=== PATIENT | male | born 1975 | race Caucasian/White ===

== ENCOUNTER 2016-04-29 02:00 | Inpatient (IN) | payer OTHER ==
[~2016-04-29] VITALS: Ht 182.9 cm; Wt 75.9 kg
[2016-04-29 01:00] VITALS: BP 106/65; PULSE 80; RESP 18; TEMP 97.6; O2SAT 97
[~2016-04-29 02:00] MED LIST: AZIT250T3 PO; CHLO25CA2 PO
[2016-04-29] MEDS ORDERED: MAGNESIUM HYDROXIDE SUSP 30 ML CUP PO PRN (02:45)
[2016-04-29] MEDS ORDERED: ALUMINUM/MAGNESIUM/SIMETH 30 ML CUP PO PRN (02:45)
[2016-04-29] MEDS ORDERED: ACETAMINOPHEN 325 MG TAB PO PRN (02:45)
[2016-04-29 05:50] VITALS: BP 114/69; PULSE 57; RESP 16; TEMP 97.6; O2SAT 98
[2016-04-29] MEDS ORDERED: LORazepam 2 MG/ML VIAL IV PUSH PRN ×4 (06:00)
[2016-04-29] MEDS ORDERED: LORazepam 2 MG TAB PO PRN (06:00)
[2016-04-29] MEDS ORDERED: FLUMAZENIL 0.5 MG/5 ML VIAL IV PUSH PRN (06:00)
[2016-04-29] MEDS ORDERED: LORazepam 1 MG TAB PO PRN (06:00)
--- NOTE | 2016-04-29 13:31 | HHI.HP ---
Provisional Diagnosis Admission Date Apr 29, 2016 at 02:00 [place] I. Alcohol-induced mood disorder, alcohol use disorder, [place] II. Deferred [place] III. Hypertension [place] IV. Lack of family and social support [place] V. 55 Certification of Person's Competence To Provide Express and Informed Consent I have personally examined Jose Alberto Galeas , a person being served at [facility] on, Apr 29, 2016 13:22. Express and informed consent means consent voluntarily given in writing, by a competent person, after sufficient explanation and disclosure of the subject matter involved to enable the person to make a knowing and willful decision without any element of force, fraud, deceit, duress, or other form of constraint or coercion. This person is 18 years of age or older, is not now known to be incompetent to consent to treatment with a guardian advocate, and does not have a health care surrogate or proxy currently making medical treatment decisions. I have found this person to be one of the following: [X] Competent to provide express and informed consent, as defined above, for voluntary admission to this facility and is competent to provide express and informed consent for treatment. He/she has the consistent capacity to make well reasoned, willful, and knowing decisions concerning his or her medical or mental health treatment. The person fully and consistently understands the purpose of the admission for examination/placement and is fully capable of personally exercising all rights [place] Incompetent to provide express and informed consent to voluntary admission, and this is incompetent to provide express and informed consent to treatment. The person must be transferred to involuntary status and a petition for a guardian advocate filed with the Circuit Court. [] Refusing to provide express and informed consent to voluntary admission but is competent to provide express and informed consent for treatment. The person must be discharged or transferred to involuntary status. Form shall be completed within 24 hours of a person's arrival at the receiving facility and filed in the clinical record of each person: 1. Admitted on a voluntary basis 2. Permitted to provide express and informed consent to his/her own treatment 3. Allowed to transfer from involuntary to voluntary status 4. Prior to permitting a person to consent to his or her own treatment after having been previously found incompetent to consent to treatment. History of Present Illness Capacity: Has Capacity HPI The patient is a 40-year-old man, domiciled with a roommate Jarod, employed in constructions, single, with psychiatric history of alcohol use disorder, alcohol related ER visits, no previous psychiatric hospitalizations, 1 previous suicidal attempt by overdosing, multiple incarcerations, medical history hypertension, who was brought to the hospital under [place] act due to suicidal statement to the police. On psychiatric evaluation today patient is calm, cooperative and pleasant, he stated that yesterday he had an argument with his roommate, his roommate called the police and he became very mad and he stated that "you can kill him if he want to", but he says that he was just furious and frustrated and also under the influence of alcohol. At this moment the patient denies depressive symptoms, he denies anxiety, he denies anhedonia, he denies hopelessness, he denies helplessness, he denies suicidal and homicidal ideation. He denies visual and auditory hallucinations. No paranoia , no delusions, no agitation, no aggressive behavior, observed.. Patient is fully oriented 3. Patient is future oriented, he says that he will stay in the [facility] or will go back to [facility], when he has a lot of friends and will look for a new job. Patient requests to speak with oncology social worker to see if he can get some clothes and shoes. He reports daily use of alcohol, anywhere from 4-10 beers, he denies the use of other illicit drugs. He reports occasional withdrawal, denies seizures. He has been in rehabilitation in the past in [facility]. Review of Systems Constitutional: DENIES: Diaphoretic episodes, Fatigue, Fever, Weight gain, Weight loss, Chills, Dizziness, Change in appetite, Night Sweats Endocrine: DENIES: Heat/cold intolerance, Polydipsia, Polyuria, Polyphagia Eyes: DENIES: Blurred vision, Diplopia, Eye inflammation, Eye pain, Vision loss , Photosensitivity, Double Vision Ears, nose, mouth, throat: DENIES: Tinnitus, Hearing loss, Vertigo, Nasal discharge, Oral lesions, Throat pain, Hoarseness, Ear Pain, Running Nose, Epistaxis, Sinus Pain, Toothache, Odynophagia Respiratory: DENIES: Apneas, Cough, Snoring, Wheezing, Hemoptysis, Sputum production, Shortness of breath Cardiovascular: DENIES: Chest pain, Palpitations, Syncope, Dyspnea on Exertion , PND, Lower Extremity Edema, Orthopnea, Claudication Gastrointestinal: DENIES: Abdominal pain, Black stools, Bloody stools, Constipation, Diarrhea, Nausea, Vomiting, Difficulty Swallowing, Anorexia Genitourinary: DENIES: Sexual dysfunction, Urinary frequency, Urinary incontinence, Urgency, Hematuria, Dysuria, Nocturia, Penile Discharge, Testicular Pain, Testicular Swelling Integumentary: DENIES: Abnormal pigmentation, Nail changes, Pruritus, Rash Hematologic/lymphatic: DENIES: Bruising, Lymphadenopathy Immunologic/allergic: DENIES: Eczema, Urticaria Neurologic: DENIES: Abnormal gait, Headache, Localized weakness, Paresthesias, Seizures, Speech Problems, Tremor, Poor Balance Psychiatric: DENIES: Anxiety, Confusion, Mood changes, Depression, Hallucinations, Agitation, Suicidal Ideation, Homicidal Ideation, Delusions Past Psych History Psychological trauma history He denies Violence risk - others (6 mos) Patient has been incarcerated multiple times due to assault, robbery, possession of drugs Violence risk - self (6 mos) Chronic suicidal risk Substance Abuse History Drugs/Alcohol past 12 months He drinks 4-10 beers every day. Past Family Social History Coded Allergies: No Known Allergies (Unverified , 01/15/16) Active Scripts Chlordiazepoxide 25 Mg Cap25 Mg PO TID PRN (WITHDRAWAL) #15 CAP Ref 0 Prov:Ghassan West MD 01/15/16 Azithromycin 250 Mg Rsc502 Mg PO DAILY 4 Days Prov:Ghassan West MD 01/15/16 Current Medications Medications (Trade) Dose Ordered Sig/[place] Route Start Time Stop Time Status Last Admin (Tylenol) 650 mg Q4H PRN PO 04/29/16 02:45 (Milk Of Magnesia Liq) 30 ml DAILY PRN PO 04/29/16 02:45 (Mag-Al Plus Susp Liq) 30 ml Q6H PRN PO 04/29/16 02:45 (Flu (Quadrivalent) Vaccine Inj) 0.5 ml ONCE ONCE IM 04/30/16 09:00 04/30/16 09:01 (Ativan) 1 mg Q4H PRN PO 04/29/16 06:00 (Ativan Inj) 1 mg Q4H PRN IV PUSH 04/29/16 06:00 (Ativan) 2 mg Q2H PRN PO 04/29/16 06:00 (Ativan Inj) 2 mg Q2H PRN IV PUSH 04/29/16 06:00 (Ativan Inj) 2 mg Q1H PRN IV PUSH 04/29/16 06:00 (Ativan Inj) 2 mg Q15M PRN IV PUSH 04/29/16 06:00 (Romazicon Inj) 0.2 mg Q1M PRN IV PUSH 04/29/16 06:00 Family History He denies Social History Patient was born and raised in [place], he was living in [place] with a friend. He is single, no kids, employed in construction, his highest level of education is GED. Physical Exam Vital Signs Vital Signs Date Time Temp Pulse Resp B/P Pulse Ox O2 Delivery O2 Flow Rate FiO2 04/29/16 05:50 97.6 57 16 114/69 98 Mental Status Examination Appearance man, he was younger than his stated age, good hygiene, [facility], calm and cooperative Speech: Unremarkable Orientation: x3 Memory: Unremarkable Thought Process: Logical Thought Content: Unremarkable Hallucination Type: None Suicidal Ideation: No Previous Suicide Attempts: Yes Homicidal Ideation: No Previous Homicide Attempts: No Insight: Good Affect: Good Mood: Appropriate Motor Activity: Normal gait Assessment & Plan Problem List: (1) Alcohol abuse with alcohol-induced mood disorder Assessment & Plan: At the moment of this evaluation the patient does not present any evidence of depression, anxiety, antoine or psychosis. She denies suicidal or homicidal ideation, he denies visual and auditory hallucinations. Suicidal statement made yesterday by the patient to the police was most probably secondary to frustration, anger after argument with roommate, and in part most probably secondary to acute alcohol intoxication. He does not meet criteria to continue psychiatric hospitalization. No psychotropics indicated. Extensive psychoeducation, motivation and support provided. printing table worker already completed psychosocial assessment and psychotherapy. Rehabilitation programs referral provided. Patient does not need outpatient psychiatric care. ICD Code: F10.14 Assessment & Plan Estimated LOS: Aime Dai MD Apr 29, 2016 13:31
[2016-04-30] MEDS ORDERED: INFLUENZA VIRUS VACCINE (QUADRIVALENT) 0.5 ML SYR IM ONE (09:00)
== END 2016-04-29 14:52 | disposition home or self-care (01) | DRG 897 ==
LOC: H260 02:00
PROVIDERS: ADMIT Psychiatry & Neurology Psychiatry; ATTEND Psychiatry & Neurology Psychiatry
DX: F10.14 Alcohol abuse with alcohol-induced mood disorder (principal); I10 Essential (primary) hypertension

== ENCOUNTER 2016-06-14 19:40 | Emergency (ER) | payer OTHER ==
[2016-06-14] MEDS ORDERED: ACETAMINOPHEN 325 MG TAB PO ONE (20:15)
--- NOTE | 2016-06-14 20:33 | PD ---
HPI Chief Complaint: Medical Clearance Time Seen by Provider: 20:02 Travel History International Travel<30 days: No Contact w/Intl Traveler<30days: No Traveled to known affect area: No History of Present Illness HPI Patient is a 40 year old male brought in by police after he hit his head into the partition of the police car. He says he was angry he had been arrested so he banged his head. He complains of some dizziness. He denies nausea or vomiting. He says he was feeling well prior to the event. He denies neck pain or extremity numbness/tingling. He says he has had a tetanus vaccine within the last 5 years. PFSH Past Medical History Medical History: Denies Significant Hx Arthritis: No Asthma: No Autoimmune Disease: No Anxiety: Yes Depression: Yes (HX OF [place] IN LONG TERM) Heart Rhythm Problems: No Cancer: No Cardiovascular Problems: No High Cholesterol: No Chemotherapy: No Chest Pain: No COPD: No Cerebrovascular Accident: No Diabetes: No Diminished Hearing: No Endocrine: No GERD: No Genitourinary: No Hiatal Hernia: No Immune Disorder: No Kidney Stones: No Musculoskeletal: No Neurologic: No Psychiatric: Yes (FOR MANY YEARS; PER PT BIPOLAR D/O) Reproductive: No Respiratory: No Immunizations Current: Yes Migraines: No Radiation Therapy: No Renal Failure: No Seizures: No Sickle Cell Disease: No Sleep Apnea: No Thyroid Disease: No Ulcer: No Past Surgical History Surgical History: No Previous Surgery Abdominal Surgery: No AICD: No Arteriovenous Shunt: No Cardiac Surgery: No Ear Surgery: No Endocrine Surgery: No Eye Surgery: No Genitourinary Surgery: No Gynecologic Surgery: No Insulin Pump: No Joint Replacement: No Oral Surgery: No Pacemaker: No Thoracic Surgery: No Tonsillectomy: Yes Other Surgery: Yes (HX OF TONSILECTOMY) Social History Alcohol Use: Yes (DAILY) Tobacco Use: Yes (1PPD) Substance Use: Yes (MARIJUANA COCAINE) Allergies-Medications (Allergen,Severity, Reaction): Coded Allergies: No Known Allergies (Unverified , 06/14/16) Reported Meds & Prescriptions Reported Meds & Active Scripts Active Review of Systems Eyes: No: Blurred Vision HENT: Positive: Headaches, Lightheadedness Gastrointestinal: No: Nausea, Vomiting Musculoskeletal: No: Myalgias Skin: Positive Other (lacerations) Neurologic: Positive: Dizziness, No: Paresthesia, Sensory Disturbance Physical Exam Narrative GENERAL: Awake and alert, in no acute distress. SKIN: Focused skin assessment warm/dry. Superficial laceration to the forehead , no active bleeding. HEAD: Atraumatic. Normocephalic. EYES: Pupils equal and round. No scleral icterus. Extraocular movements intact. ENT: Mucous membranes pink and moist. NECK: Trachea midline. No JVD. No cervical spine tenderness. CARDIOVASCULAR: Regular rate and rhythm. No murmur appreciated. RESPIRATORY: No accessory muscle use. Clear to auscultation. Breath sounds equal bilaterally. GASTROINTESTINAL: Abdomen soft, non-tender, nondistended. Hepatic and splenic margins not palpable. NEUROLOGICAL: Awake and alert. No obvious cranial nerve deficits. Motor grossly within normal limits. Normal speech. Data Data Orders Ct Brain W/O Iv Contrast(Rout) (06/14/16 ) Acetaminophen (Tylenol) (06/14/16 20:15) MDM Medical Decision Making Medical Screen Exam Complete: Yes Emergency Medical Condition: Yes Medical Record Reviewed: Yes Differential Diagnosis Laceration versus ICH versus concussion Narrative Course Patient is a 40-year-old male comes in after he banged his head in the police car. He has a superficial laceration to his forehead. There are no neurologic abnormalities. Laceration cleaned and repaired with Dermabond. CT head performed shows no acute abnormalities. Patient given Tylenol for pain. Discharged to police custody. Procedures Procedure Narrative LACERATION LOCATION: For head LENGTH: 2 cm The wound was copiously irrigated and explored without evidence of foreign body , tendon injury or neurovascular injury. The wound was closed using Dermabond. The patient was advised to keep the wound clean and dry. Patient tolerated the procedure well. Diagnosis Primary Impression: Laceration of forehead Qualified Code: S01.81XA - Laceration of forehead, initial encounter Patient Instructions: Facial Laceration (ED), General Instructions Additional Instructions: Keep your wound clean and dry. Take Tylenol as needed for pain. Return to the ED as needed for any worsening symptoms. Disposition: [address] LAW ENFORCEMNT Condition: Stable Liz Hernandez MD Jun 14, 2016 20:33
--- NOTE | 2016-06-14 20:39 | RADRPT ---
EXAM DATE/TIME: 06/14/2016 20:28 [facility] COMPARISON: No previous studies available for comparison. INDICATIONS : Trauma; fall. RADIATION DOSE: 39.34 CTDIvol (mGy) MEDICAL HISTORY : None SURGICAL HISTORY : Tonsillectomy. ENCOUNTER: Initial ACUITY: 1 day PAIN SCALE: 5/10 LOCATION: cranial TECHNIQUE: Multiple contiguous axial images were obtained of the head. Using automated exposure control and adj ustment of the mA and/or kV according to patient size, radiation dose was kept as low as reasonably a chievable to obtain optimal diagnostic quality images. FINDINGS: There is no evidence for intracranial hemorrhage, mass effect, mass lesions, edema, or extra-axial fl uid collections. The visualized bony structures appear intact. The ventricles are normal size for t he patient's age. There are no signs of acute infarction for technique. CONCLUSION: Unremarkable study. Alyssa Lowe MD on June 14, 2016 at 20:37 Board Certified Radiologist. This report was verified electronically.
== END 2016-06-14 21:06 ==
LOC: NEPD 19:40
DX: S01.81XA Laceration without foreign body of other part of head, initial encounter (principal); W22.09XA Striking against other stationary object, initial encounter; Y92.810 Car as the place of occurrence of the external cause
CPT/HCPCS: 12011; 70450

== ENCOUNTER 2017-05-11 00:35 | Emergency (ER) | payer OTHER ==
[~2017-05-11] VITALS: Ht 172.7 cm; Wt 80.0 kg
[~2017-05-11 00:35] MED LIST changes: -AZIT250T3 PO; +BACT800T5 PO; +CEPH-460 PO; -CHLO25CA2 PO
[2017-05-11 01:08] VITALS: BP 166/72; PULSE 87; RESP 20; TEMP 97.5; O2SAT 99
--- NOTE | 2017-05-11 01:26 | PD ---
HPI Chief Complaint: Medical Clearance Time Seen by Provider: 01:00 Travel History International Travel<30 days: No Contact w/Intl Traveler<30days: No Traveled to known affect area: No History of Present Illness HPI 41-year-old white male presents to emergency department for medical clearance to go to correction. Patient allegedly had fallen off the bench and the transport wagon. Patient sustained laceration to his left forearm and right eyebrow. Patient denies syncope. He denies any other medical complaints. Up-to-date with immunizations. No neck or back pain. No nausea vomiting. PFSH Past Medical History Arthritis: No Asthma: No Autoimmune Disease: No Anxiety: Yes Depression: Yes (HX OF [place] IN [facility]) Heart Rhythm Problems: No Cancer: No Cardiovascular Problems: No High Cholesterol: No Chemotherapy: No Chest Pain: No COPD: No Cerebrovascular Accident: No Diabetes: No Diminished Hearing: No Endocrine: No Gastrointestinal Disorders: No GERD: No Genitourinary: No Headaches: No Hiatal Hernia: No Heparin Induced Thrombocytopen: No Hypertension: No Immune Disorder: No Implanted Vascular Access Dvce: No Kidney Stones: No Musculoskeletal: No Neurologic: No Psychiatric: Yes (FOR MANY YEARS; PER PT BIPOLAR D/O) Reproductive: No Respiratory: No Immunizations Current: Yes Migraines: No Radiation Therapy: No Renal Failure: No Seizures: No Sickle Cell Disease: No Sleep Apnea: No Thyroid Disease: No Ulcer: No Tetanus Vaccination: < 5 Years Influenza Vaccination: No Past Surgical History Surgical History: No Previous Surgery Abdominal Surgery: No AICD: No Arteriovenous Shunt: No Cardiac Surgery: No Ear Surgery: No Endocrine Surgery: No Eye Surgery: No Genitourinary Surgery: No Gynecologic Surgery: No Insulin Pump: No Joint Replacement: No Neurologic Surgery: No Oral Surgery: No Pacemaker: No Thoracic Surgery: No Tonsillectomy: Yes Other Surgery: Yes (HX OF TONSILECTOMY) Social History Alcohol Use: Yes Tobacco Use: No Substance Use: No Allergies-Medications (Allergen,Severity, Reaction): Coded Allergies: No Known Allergies (Unverified Adverse Reaction, Unknown, 05/11/17) Reported Meds & Prescriptions Reported Meds & Active Scripts Active Review of Systems General / Constitutional: No: Fever Eyes: No: Visual changes HENT: No: Headaches Cardiovascular: No: Chest Pain or Discomfort Respiratory: No: Shortness of Breath Gastrointestinal: No: Abdominal Pain Genitourinary: No: Dysuria Musculoskeletal: No: Pain Skin: No Rash Neurologic: No: Weakness Psychiatric: No: Depression Endocrine: No: Polydipsia Hematologic/Lymphatic: No: Easy Bruising Physical Exam Narrative GENERAL: Well-developed, well-nourished in no apparent distress. Nontoxic appearing. Patient smells of EtOH and appears intoxicated HEAD: Patient has a 2.5 cm laceration to the left forehead as well as a 1.5 cm laceration to the right eyebrow. EYES: Pupils equal round and reactive. Extraocular motions intact. No scleral icterus. No injection or drainage. ENT: Nose clear. Throat without erythema, tonsillar hypertrophy or exudate. Uvula midline. Airway patent. NECK: Trachea midline. Supple, nontender, moves head freely. No central bony tenderness or spasm. CARDIOVASCULAR: Regular rate and rhythm without murmurs, gallops, or rubs. RESPIRATORY: Clear to auscultation. Breath sounds equal bilaterally. No wheezes , rales, or rhonchi. GASTROINTESTINAL: Abdomen soft, non-tender, nondistended. No hepato-splenomegaly , or palpable masses. No guarding. EXTREMITIES: No clubbing, cyanosis, or edema. No joint tenderness. BACK: Nontender without deformity. No flank tenderness. NEUROLOGICAL: Awake, alert and oriented x 3 .Cranial nerves grossly intact. Motor and sensory grossly within normal limits. Normal speech. Data Data Last Documented VS Vital Signs Date Time Temp Pulse Resp B/P (MAP) Pulse Ox O2 Delivery O2 Flow Rate FiO2 05/11/17 01:08 97.5 87 20 166/72 (103) 99 Orders Orders Ed Discharge Order (05/11/17 01:21) [facility] Medical Decision Making Medical Screen Exam Complete: Yes Emergency Medical Condition: Yes Medical Record Reviewed: Yes Differential Diagnosis MDM: High Differential diagnoses: Fracture, sprain, strain, dislocation, contusion, neurovascular injury Narrative Course Patient's lacerations are closed with Dermabond. His exam otherwise is unremarkable. Procedures Procedure Narrative LACERATION LOCATION: Left forehead LENGTH: 2.5 cm NUMBER OF STITCHES/HOANG: Not applicable REPAIR: The area of the laceration was prepped with Betadine and sterilely draped. The wound was copiously irrigated and explored without evidence of foreign body, tendon injury or neurovascular injury. The wound was closed using Dermabond. This was a supple single layer repair. Patient tolerated the procedure well. LACERATION LOCATION: Right eyebrow LENGTH: 1.5 cm NUMBER OF STITCHES/HOANG: Not applicable REPAIR: The area of the laceration was prepped with Betadine and sterilely draped. The wound was copiously irrigated and explored without evidence of foreign body, tendon injury or neurovascular injury. The wound was closed using Dermabond. This was a supple single layer repair. Patient tolerated the procedure well. Diagnosis Primary Impression: Laceration of forehead Qualified Codes: S01.81XA - Laceration without foreign body of other part of head, initial encounter Patient Instructions: General Instructions Additional Instructions: Rest. Head precautions. Tylenol for pain. Ice packs. Avoid alcohol. Dermabond instructions. Avoid all sedating or intoxicating substances. Recheck with your physician within 1-2 days. Return to the ER for any problems. Med/Other Pt SpecificInfo: Wound Care Disposition: [address] LAW ENFORCEMNT Condition: Stable Rodo Ornelas May 11, 2017 01:26
== END 2017-05-11 01:45 ==
LOC: NEPD 00:35
DX: S01.81XA Laceration without foreign body of other part of head, initial encounter (principal); W19.XXXA Unspecified fall, initial encounter
CPT/HCPCS: 12013